=== PATIENT | male | born 1960 | race Caucasian/White ===

== ENCOUNTER → 2023-09-26 08:05 | Outpatient (REF) | payer BC, SELFPAY | LOC: HWRAD 08:05 | PROVIDERS: ATTENDING PHYSICIAN Student in an Organized Health Care Education/Training Program; FAMILY PHYSICIAN Student in an Organized Health Care Education/Training Program | DX: R10.31 Right lower quadrant pain (principal) | CPT/HCPCS: 74177; Q9967 ==